=== PATIENT | male | born 1955 | race Caucasian/White ===

== ENCOUNTER → 2021-12-20 | Outpatient (CLI) | payer MEDICARE, OTHER ==
[2016-07-23 12:52] VITALS: BP 140/89
--- NOTE | 2021-12-20 18:01 | RAD ---
EXAM: XR RIBS 2 VIEWS LT, XR ABDOMEN 2V 12/20/2021 11:22 AM CLINICAL INDICATION: Left-sided pain for 5 to 10 days COMPARISON: None TECHNIQUE: AP supine and upright view the abdomen. AP and oblique views of the left ribs. FINDINGS: ABDOMEN: Bowel gas pattern is nonspecific and nonobstructive. Normal volume of stool. There are surgi colin clips in the right lower quadrant. No acute osseous abnormality. LEFT RIBS: No displaced left rib fracture. The visualized portion of the lungs are clear. No left ple ural effusion or pneumothorax. The heart is normal in size. Mild degenerative joint disease of the le ft acromioclavicular joint. IMPRESSION: 1. No acute abnormality in the abdomen. 2. No acute left rib fracture identified. Electronically signed by: Tawanna Islas MD (12/20/2021 5:58 PM) [id number]
== END ==
LOC: RAD 11:06
PROVIDERS: ATTEND Physician Assistant
DX: R07.81 Pleurodynia (principal); M19.012 Primary osteoarthritis, left shoulder
CPT/HCPCS: 71100; 74019

== ENCOUNTER → 2021-12-28 | Outpatient (CLI) | payer MEDICARE, OTHER ==
[2016-07-23 12:52] VITALS: BP 140/89
--- NOTE | 2021-12-28 09:01 | RAD ---
EXAM: CT CHEST WITHOUT CONTRAST HISTORY: Prostate cancer, left lateral ribs and chest pain COMPARISON: Left rib radiograph 12/20/2021 TECHNIQUE: Helical CT of the chest performed without contrast. Coronal and sagittal reformats were o btained. One or more of the following individualized dose reduction techniques were utilized for this examinat ion: 1. Automated exposure control 2. Adjustment of the mA and/or kV according to patient size 3. Use of iterative reconstruction technique. 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 Heart and great vessels: Heart is normal in size. No pericardial effusion. There are either a few cor onary artery calcifications or aortic annulus calcifications. The thoracic aorta is normal in caliber . Mediastinum and chad: No mediastinal or hilar lymphadenopathy. There are calcified subcarinal and rig ht hilar lymph nodes. Lungs and pleura: There is a calcified granuloma in the right lower lobe. There is a 3 mm groundglass nodule in the superior segment left lower lobe (image 42, series 2). The lungs are otherwise clear. No pleural effusion or pneumothorax. Chest wall and axillae: No axillary lymphadenopathy. Upper abdomen: The upper abdomen is unremarkable. Bones: There is a 1.5 cm well circumscribed lytic lesion in the right sixth lateral rib, possibly a e nchondroma or hemangioma (image 106, sagittal series 4). There is a 4 mm sclerotic lesion in the L1 v ertebral body, nonspecific. There is a hemangioma in the T11 vertebral body. IMPRESSION: 1. No acute osseous abnormality of the left ribs. 2. 4 mm sclerotic lesion in the L1 vertebral body. This is nonspecific and could be a bone island bu t given the history of prostate cancer, a sclerotic metastasis cannot be excluded. Consider correlati on with nuclear medicine bone scan for osseous metastatic disease. 3. 1.5 cm well-circumscribed lytic lesion in the right sixth lateral rib, also nonspecific but favor ed to be a benign enchondroma or hemangioma. 4. 3 mm groundglass nodule in the superior segment of the left lower lobe, nonspecific. This does not routinely require follow-up. 5. 2.7 cm partially calcified right thyroid nodule. Recommend further evaluation with dedicated thyro id ultrasound. Electronically signed by: Tawanna Islas MD (12/28/2021 8:59 AM) [id number]
== END ==
LOC: CT 08:07
PROVIDERS: ATTEND Physician Assistant
DX: C61 Malignant neoplasm of prostate (principal); R91.1 Solitary pulmonary nodule; J84.10 Pulmonary fibrosis, unspecified; E04.1 Nontoxic single thyroid nodule; R07.81 Pleurodynia
CPT/HCPCS: 71250